=== PATIENT | female | born 1945 | race Caucasian/White ===

== ENCOUNTER 2017-07-25 13:26 | Emergency (ER) | payer OTHER ==
[~2017-07-25] VITALS: Ht 160 cm; Wt 64.0 kg
[2017-07-25 13:37] VITALS: BP 147/99
--- NOTE | 2017-07-25 13:47 | NUR ---
PATIENT PRESENTS TO ED WITH LEFT SHOULDER/ELBOW PAIN S/P MECHANICAL FALL YESTERDAY . PT STATES . DENIES N/V/D; SKIN IS PINK/WARM/DRY; AAOX4 WITH EVEN AND STEADY GAIT; LUNGS CLEAR BL; HR EVEN AND REGULAR; PT DENIES ANY FEVER, CP, SOB, OR COUGH AT THIS TIME; PATIENT STATES PAIN OF 0/10 AT THIS TIME; VSS; PATIENT POSITIONED FOR COMFORT; ER MD MADE AWARE OF PT STATUS.
[2017-07-25] MEDS ORDERED: ACETAMINOPHEN EXTRA STRENGTH 500 MG TAB PO ONE (14:00)
--- NOTE | 2017-07-25 14:05 | NUR ---
PT TO RADIOLOGY VIA WHEELCHAIR
--- NOTE | 2017-07-25 14:15 | NUR ---
PT RETURNED FROM RADIOLOGY
--- NOTE | 2017-07-25 15:35 | NUR ---
X-RAY READS HANDED TO PT TO TAKE TO PMD Patient discharged with v/s stable. Written and verbal after care instructions given and explained. Patient verbalized understanding. Ambulatory with steady gait. All questions addressed prior to discharge. Advised to follow up with PMD.
[2017-07-25 15:36] VITALS: BP 139/86
== END 2017-07-25 15:25 | disposition home or self-care (01) ==
LOC: MED 13:26
DX: M25.512 Pain in left shoulder (principal); M79.602 Pain in left arm
CPT/HCPCS: 73030; 73090; 99284